=== PATIENT | female | born 1955 | race Hispanic/Latino ===

== ENCOUNTER 2025-07-07 10:35 | Outpatient (CLI) | payer OTHER | END 2025-07-07 10:36 | disposition home or self-care (01) | LOC: DTY/OP 10:35 | DX: E11.9 Type 2 diabetes mellitus without complications (principal); E66.01 Morbid (severe) obesity due to excess calories; K76.0 Fatty (change of) liver, not elsewhere classified | CPT/HCPCS: 97802 ==

== ENCOUNTER 2025-07-15 13:15 | Outpatient (CLI) | payer OTHER | END 2025-07-15 13:16 | disposition home or self-care (01) | LOC: BICMAMMO 13:15 | DX: Z12.31 Encounter for screening mammogram for malignant neoplasm of breast (principal) | CPT/HCPCS: 77063; 77067 ==